=== PATIENT | female | born 1965 | race African-American/Black ===

== ENCOUNTER 2018-05-16 23:21 | Emergency (ER) | payer MEDICAID, OTHER ==
[~2018-05-16] VITALS: Ht 180.3 cm; Wt 100.0 kg
[2018-05-17] MEDS ORDERED: LIDOCAINE HCL 1% 20ML VIAL (Pyxis) INJ INFIL ONE (03:45)
[2018-05-17] MEDS ORDERED: IBUPROFEN 600MG TABLET PO ONE (03:45)
[2018-05-17] MEDS ORDERED: LIDOCAINE HCL/PF 1% 10 MG/ML 5ML VIAL IJ NR (04:15)
[2018-05-17] MEDS ORDERED: BACITRACIN ZINC OINT UDPKT TOP ONE (06:00)
[2018-05-17 06:56] VITALS: BP 132/82
== END 2018-05-17 06:59 | disposition home or self-care (01) ==
LOC: ER 23:21
DX: L03.011 Cellulitis of right finger (principal); F12.10 Cannabis abuse, uncomplicated; F17.200 Nicotine dependence, unspecified, uncomplicated; Z90.710 Acquired absence of both cervix and uterus
CPT/HCPCS: 99283; J3490; Z7610